=== PATIENT | female | born 1995 | race Caucasian/White ===

== ENCOUNTER 2020-04-28 11:54 | Outpatient (CLI) | payer OTHER | END 2020-04-28 11:55 | disposition home or self-care (01) | LOC: LAB 11:54 | PROVIDERS: ATTEND Obstetrics & Gynecology | DX: O34.29 Maternal care due to uterine scar from other previous surgery (principal); Z3A.00 Weeks of gestation of pregnancy not specified; Z20.828 Contact with and (suspected) exposure to other viral communicable diseases | CPT/HCPCS: 81599 ==

== ENCOUNTER 2020-04-30 11:53 | Outpatient (CLI) | payer OTHER | END 2020-04-30 11:54 | disposition home or self-care (01) | LOC: LAB 11:53 | PROVIDERS: ATTEND Obstetrics & Gynecology | DX: Z01.812 Encounter for preprocedural laboratory examination (principal); O34.219 Maternal care for unspecified type scar from previous cesarean delivery | CPT/HCPCS: 36415; 86850; 86900; 86901 ==

== ENCOUNTER 2020-05-01 05:30 | Inpatient (IN) | payer OTHER ==
[~2020-05-01 05:30] MED LIST: LACTATED RINGERS 1,000 ML IV SCH
[2020-05-01] MEDS ORDERED: ceFAZolin 2 GM in SODIUM CHLORIDE 0.9% 100ML 100 ML IV ONE (07:00)
--- NOTE | 2020-05-01 07:11 | HISTORY & PHYSICAL EXAMINATION ---
Admit History - Visit Reason Visit Reason: Other (planned ) - : 2 Parity: 1 Care: positive: STEVEN-Tesha Risk/History: positive: Previous , Gestational diabetes Complications This : positive: Treated for GBS/UTI, Gestational diabetes Smoking Status: Never smoker - Mother's Labs Mother's Blood Type: positive: O Mother's RH: positive: Positive GBS: positive: Group B Strep Positive Rubella Status: positive: Immune - Other Maternal History Other Maternal History: 1. Prior x 1 2. Gestational diabetes, diet-controlled. Late diagnosis d/t noncompliance with care. 3. Suspected macrosomia, EFW [id number] (99th %ile) 4. GBS bacteriuria, treated 5. E. coli UTI, treated 6. Obesity, BMI 44 7. +CT 1st trimester, third trimester test for reinfection neg 8. Transaminitis 1st trimester, resolved, etiology unknown Meds/Allgy - Home Medications Home Medications: Ambulatory Orders Medication Instructions Recorded Confirmed No122/Iron/Folic Acid 1 each PO 04/18/20 [ Multi Tablet] - Allergies Allergies/Adverse Reactions: Allergies Allergy/AdvReac Type Severity Reaction Status Date / Time No Known Drug Allergies Allergy Verified 04/18/20 14:22 Review of Systems - Constitutional Constitutional: denies: Fatigue - Eyes Eyes: denies: Blurred vision, Spots in vision - Cardiovascular Cariovascular: denies: Palpitations, Chest pain - Respiratory Respiratory: denies: SOB at rest - Gastrointestinal Gastrointestinal: denies: Abdominal pain - Psychiatric Psychiatric: denies: Depression Physical - Abdominal Exam Vital Signs: Temp Pulse Resp BP Pulse Ox 98.2 F 96 18 125/68 100 05/01/20 06:09 05/01/20 05:42 05/01/20 05:42 05/01/20 05:42 05/01/20 05:42 Contraction Frequency (min/apart): irregular Contraction Intensity: positive: Mild Uterine Resting Tone: positive: Soft - Monitoring Heart Rate Baseline: 155 Strip Review: positive: Category I - Presentation Presentation: positive: Vertex (by Jerry EFW 10.75#) - Vaginal Exam Membranes: positive: Membranes intact - Speculum Exam Speculum Exam Performed: positive: No Plan for Labor - Plan For Labor Plan for Labor: 24 yo here at 39+0 wga for planned RLTCD. BMI 44. c/b A1GDM, suspected macrosomia. CBS 107 this AM, however pt continues to report good control at home for the past week. Transaminitis in the 1st trimester, resolved. +CT first trimester, treated and 3rd trimester screen neg. GBS bacteriuria and E. Coli UTI treated at 35 wga. CBC, T&S, CMP this AM prior to surgery (not resulted from preop lab draw). Ancef 3 gm for SSI prophylaxis. SCDs for VTE prophylaxis. Anticipate routine postoperative care, discharge home 48 hours postoperatively.
[2020-05-01] MEDS ORDERED: CITRIC ACID/SODIUM CITRATE 15 ML UDC PO ONE (07:19)
[2020-05-01] MEDS ORDERED: ceFAZolin 3 GM in SODIUM CHLORIDE 0.9% 100ML 100 ML IV ONE (07:19)
--- NOTE | 2020-05-01 07:20 | ANESTHESIA ---
Pre-Anesthesia VS, & Labs - Diagnosis previous C/S, gravid uterus - Procedure repeat C/S Vital Signs: Temp Pulse Resp BP Pulse Ox 36.8 C 96 18 125/68 100 05/01/20 06:09 05/01/20 05:42 05/01/20 05:42 05/01/20 05:42 05/01/20 05:42 Height 5 ft 5 in Weight (kg) 120 kg Body Mass Index 44.0 - NPO >8 hours - Is Patient ?: Yes - Lab Results Lab results reviewed: Yes Home Medications and Allergies Home Medications: Ambulatory Orders No122/Iron/Folic Acid [ Multi Tablet] 1 each PO 04/18/20 Active Medications Cefazolin Sodium 2 gm/ Sodium (Chloride) 100 mls @ 200 mls/hr IV ONCE ONE Stop: 05/01/20 07:29 Lactated Ringer's (Lr) 1,000 mls @ 0 mls/hr IV .Q0M WILMER Last Admin: 05/01/20 06:31 Dose: 30 mls/hr Documented by: No122/Iron/Folic Acid [ Multi Tablet] 1 each PO 04/18/20 Allergies/Adverse Reactions: Allergies Allergy/AdvReac Type Severity Reaction Status Date / Time No Known Drug Allergies Allergy Verified 04/18/20 14:22 Anes History & Medical History - Anesthetic History Anesthesia Complications: reports: No previous complications - Medical History Cardiovascular: reports: None Pulmonary: reports: None Gastrointestinal: reports: None Urinary: reports: None Musculoskeletal: reports: None Endocrine/Autoimmune: reports: Other Skin: reports: None Smoking Status: Never smoker Other Past Medical History: morbid obesity - Surgical History Gynecologic: section - Obstetrical History : 2 Parity: 1 Events: positive: Previous , Gestational diabetes Complications: positive: Treated for GBS/UTI, Gestational diabetes Exam General: Alert, Oriented x3, Cooperative Dental: WNL Mouth Opening: Greater than 4 Fingerbreadths Neck Mobility: Normal Mallampati classification: II Thyromental Distance: 4-6 cm Respiratory: Lungs clear Cardiovascular: Regular rate Plan Anesthesia Type: Spinal Consent for Procedure(s) Verified and Reviewed: Yes Code Status: Attempt Resuscitation ASA classification: 3-Severe systemic disease Is this case an emergency?: No
[2020-05-01 07:28] LABS: ALBUMIN 2.9 g/dL (3.2-5.5); ALBUMIN/GLOBULIN RATIO 0.8 (1.0-2.2); BILIRUBIN,TOTAL 0.2 mg/dL (0.2-1.0); CALCIUM 8.6 mg/dL (8.5-10.3); CREATININE 0.4 mg/dL (0.4-1.0); TOTAL PROTEIN 6.6 g/dL (6.7-8.2)
[2020-05-01 07:29] LABS: BASOPHILS % (AUTO) 0.3 %; EOSINOPHILS # (AUTO) 0.3 10^3/uL (0.0-0.7); EOSINOPHILS % (AUTO) 3.2 %; HGB - HEMOGLOBIN 10.3 g/dL (12.0-16.0); LYMPHOCYTES # (AUTO) 1.6 10^3/uL (1.5-3.5); LYMPHOCYTES % (AUTO) 17.1 %; MEAN CORPUSCULAR HEMOGLOBIN 24.8 pg (27.0-31.0); MEAN CORPUSCULAR HGB CONC 31.4 g/dL (32.0-36.0); MONOCYTES # (AUTO) 0.5 10^3/uL (0.0-1.0); MONOCYTES % (AUTO) 5.2 %; NEUTROPHILS # (AUTO) 6.8 10^3/uL (1.5-6.6); NEUTROPHILS % (AUTO) 73.3 %; PLT - PLATELET COUNT 211 10^3/uL (130-450); RED BLOOD COUNT 4.15 10^6/uL (4.20-5.40); RED CELL DISTRIBUTION WIDTH 16.6 % (12.0-15.0); WHITE BLOOD COUNT 9.3 x10^3/uL (4.8-10.8)
[2020-05-01] MEDS ORDERED: METHYLERGONOVINE 0.2 MG/ML VIAL ONE (07:42)
[2020-05-01] MEDS ORDERED: CARBOPROST TROMETHAMINE 250 MCG/ML AMP IM ONE (07:42)
[2020-05-01] MEDS ORDERED: CITRIC ACID/SODIUM CITRATE 15 ML UDC PO SCH (07:45)
[2020-05-01] MEDS ORDERED: LACTATED RINGERS 1,000 ML IV ONE ×2 (08:13→09:04)
[2020-05-01] MEDS ORDERED: SODIUM CHLORIDE FLUSH 0.9% 10 ML SYRINGE IVP PRN (09:18)
[2020-05-01] MEDS ORDERED: diphenhydrAMINE 25 MG CAPSULE PO PRN (09:18)
[2020-05-01] MEDS ORDERED: ONDANSETRON 4 MG/2 ML VIAL IVP PRN (09:18)
[2020-05-01] MEDS ORDERED: OXYTOCIN/SODIUM CHLORIDE 500 ML IV PRN (09:18)
--- NOTE | 2020-05-01 09:24 | OPERATIVE REPORT ---
Operative Report - General Admit Date: 05/01/20 Planned Procedure: repeat low transverse delivery Pre-Op Diagnosis: uterus at 39+0 wga, prior uterine scar Procedure Performed: repeat low transverse delivery Post Op Diagnosis: same as above - Procedure Note Primary Surgeon: Brice Funes Secondary Surgeon: Solo Canseco Anesthesia Provider: Sandra Dhaliwal Anesthesia Technique: Spinal Pathology: none IV Fluids (mL): 1,500 Estimated Blood Loss (mL): 800 Urine Output (mL): 500 Indications: prior uterine incision, desires RLTCD Findings: Viable female infant, 9 and 9. No significant adhesive disease. Left fallopian tube and ovary visualized and normal; right fallopian adnexa not seen (uterus repaired in situ). Double layer uterine closure. No complications appreciated. Complications: none - Other Other Information/Narrative: After informed consent was assured, patient was taken to the OR with IV fluids running. Spinal anesthesia was obtained. A morin catheter was placed draining clear yellow urine. The patient was prepped and draped in a sterile fashion. A surgical timeout was performed. Anesthesia was tested and found to be adequate. An incision was made sharply through the existing pfannenstiel scar and carried down to the fascia with cautery. The fascia wass scored on each side. Fascial incision was extended laterally with scissors on each side. The fascia was then dissected off the rectus muscles both caudad and cephalad. The rectus muscles were in the midline and the peritoneum was identified and entered sharply. The peritoneal incision was bluntly extended with good exposure of the lower uterine segment. A bladder flap was created sharply. A transverse incision was made in the lower uterine segment, with amniotomy and return of clear fluid. The incision was extended bluntly with cephalad-caudad traction. The infant's head was grasped and delivered through the incision, body followed controlled. Good tone and strong cry on the field; cord was clamped x 2 and cut, infant passed off the field. The placenta was delivered intact with gentle cord traction; an attempt was made to obtain cord blood on the back table which was unsuccessful. The uterus was unable to be exteriorized due to size but had good fundal tone. The cavity was swept with no retained tissue noted. The hysterotomy was reapproximated with a running locked suture of 0 chromic. A second suture of 1 vicryl was placed in an embricating layer in a horizontal fashion. A final running suture of 2-0 vicryl was placed in the serosa to secure some oozing. Good hemostasis was noted. Good fundal tone throughout repair. The fascia was reapproximated with a running suture of 0 PDS. The subcutaneous space was reapproximated with interrupted sutures of 2-0 vicryl to reduce tension on the skin closure. The skin was closed with a subcuticular suture of 4-0 monocryl. Steristrips were placed over the incision and it was covered with a Prevena wound vacuum. A final crede expressed small clot and revealed excellent uterine tone. Sponge and instrument counts were correct. No complications appreciated. The patient was stable and was taken to Labor and Delivery to recover.
[2020-05-01] MEDS ORDERED: LACTATED RINGERS 1,000 ML IV SCH (10:00)
[2020-05-01] MEDS: ACETAMINOPHEN 500 MG TABLET PO SCH ×2 (10:22→18:06)
[2020-05-01] MEDS: IBUPROFEN 800 MG TABLET PO SCH ×2 (10:22→18:07)
[2020-05-01] MEDS: SIMETHICONE CHEW 80 MG TABLET PO SCH ×3 (13:14→23:45)
[2020-05-01] MEDS: oxyCODONE 5 MG TABLET PO PRN ×3 (13:40→23:45)
[2020-05-01] MEDS ORDERED: MORPHINE PF 5 MG/10 ML AMP EP ONE (15:06)
[2020-05-01] MEDS ORDERED: OXYTOCIN 10 UNIT/ML VIAL IV ONE (15:06)
[2020-05-01] MEDS ORDERED: fentaNYL 100 MCG/2 ML VIAL IVP ONE (15:06)
[2020-05-01] MEDS ORDERED: NEOSTIGMINE 1 MG/1 ML 10 ML MDV IVP ONE (15:06)
[2020-05-01] MEDS ORDERED: SODIUM CHLORIDE FLUSH 0.9% 10 ML SYRINGE IVP SCH (17:00)
[2020-05-01] MEDS: DOCUSATE SODIUM 100 MG CAPSULE PO SCH (23:45)
[2020-05-02] MEDS: ACETAMINOPHEN 500 MG TABLET PO SCH ×3 (02:24→18:27)
[2020-05-02] MEDS: IBUPROFEN 800 MG TABLET PO SCH ×3 (02:24→18:28)
[2020-05-02 06:21] LABS: BASOPHILS % (AUTO) 0.3 %; EOSINOPHILS # (AUTO) 0.4 10^3/uL (0.0-0.7); EOSINOPHILS % (AUTO) 4.2 %; HGB - HEMOGLOBIN 9.9 g/dL (12.0-16.0); LYMPHOCYTES # (AUTO) 1.5 10^3/uL (1.5-3.5); LYMPHOCYTES % (AUTO) 16.6 %; MEAN CORPUSCULAR HEMOGLOBIN 24.6 pg (27.0-31.0); MEAN CORPUSCULAR HGB CONC 30.7 g/dL (32.0-36.0); MEAN CORPUSCULAR VOLUME 80.1 fL (81.0-99.0); MEAN PLATELET VOLUME 11.1 fL (7.9-10.8); MONOCYTES # (AUTO) 0.4 10^3/uL (0.0-1.0); MONOCYTES % (AUTO) 4.1 %; NEUTROPHILS # (AUTO) 6.7 10^3/uL (1.5-6.6); NEUTROPHILS % (AUTO) 74.2 %; PLT - PLATELET COUNT 205 10^3/uL (130-450); RED BLOOD COUNT 4.02 10^6/uL (4.20-5.40); RED CELL DISTRIBUTION WIDTH 16.7 % (12.0-15.0)
--- NOTE | 2020-05-02 07:04 | PROVIDER PROGRESS NOTE ---
Subjective - Prog Note Date Prog Note Date: 05/02/20 Prog Note Time: 07:05 - Subjective Pt reports feeling: Improved Subjective: Doing very well. Pain well controlled with motrin, tylenol, and infrequent roxicodone. Ambulating without difficulty. Lochia is light. Singh just removed this AM, awaiting due to void. Passing flatus. Tolerating regular diet without n/v. Not by choice. Mood is good, bonding well with infant. Objective - Vital Signs/Intake & Output Vital Signs: Vital Signs x48h Temp Pulse Resp BP Pulse Ox 05/02/20 05:12 16 99 05/02/20 04:45 98.2 F 82 16 105/64 99 05/02/20 03:00 15 98 05/02/20 02:30 16 99 05/02/20 01:30 18 99 05/02/20 00:30 15 98 05/01/20 23:44 98.1 F 82 16 106/50 L 97 05/01/20 23:05 16 98 Intake & Output: Intake & Output 04/29/20 04/30/20 05/01/20 05/02/20 23:59 23:59 23:59 23:59 Intake Total 1044 Output Total 495 475 Balance 549 -475 - Objective General Appearance: positive: No acute distress Abdomen: positive: Non-tender, No distention (soft, nondistended. Prevena wound vac in place over pfannenstiel with good suction) Skin: positive: Color nml Extremities: positive: Non-tender Neurologic/Psychiatric: positive: Oriented x3 - Lab Results Fish Bones: 05/02/20 05:32 05/01/20 06:00 Other Labs: Lab Results x24hrs 05/02/20 05/01/20 05/01/20 Range/Units 05:32 07:24 06:00 WBC 9.0 9.3 (4.8-10.8) x10^3/uL RBC 4.02 L 4.15 L (4.20-5.40) 10^6/uL Hgb 9.9 L 10.3 L (12.0-16.0) g/dL Hct 32.2 L 32.8 L (37.0-47.0) % MCV 80.1 L 79.0 L (81.0-99.0) fL MCH 24.6 L 24.8 L (27.0-31.0) pg MCHC 30.7 L 31.4 L (32.0-36.0) g/dL RDW 16.7 H 16.6 H (12.0-15.0) % Plt Count 205 211 (130-450) 10^3/uL MPV 11.1 H 11.0 H (7.9-10.8) fL Neut # (Auto) 6.7 H 6.8 H (1.5-6.6) 10^3/uL Lymph # (Auto) 1.5 1.6 (1.5-3.5) 10^3/uL [place] # (Auto) 0.4 0.5 (0.0-1.0) 10^3/uL Eos # (Auto) 0.4 0.3 (0.0-0.7) 10^3/uL Baso # (Auto) 0.0 0.0 (0.0-0.1) 10^3/uL Absolute Nucleated RBC 0.00 0.02 x10^3/uL Nucleated RBC % 0.0 0.2 /100WBC Sodium 136 (135-145) mmol/L Potassium 3.6 (3.5-5.0) mmol/L Chloride 105 (101-111) mmol/L Carbon Dioxide 22 (21-32) mmol/L Anion Gap 9.0 (6-13) BUN 11 (6-20) mg/dL Creatinine 0.4 (0.4-1.0) mg/dL Estimated GFR (MDRD) 198 (>89) Glucose 113 H (70-100) mg/dL Calcium 8.6 (8.5-10.3) mg/dL Total Bilirubin 0.2 (0.2-1.0) mg/dL AST 16 (10-42) IU/L ALT 12 (10-60) IU/L Alkaline Phosphatase 147 H (42-121) IU/L Total Protein 6.6 L (6.7-8.2) g/dL Albumin 2.9 L (3.2-5.5) g/dL Globulin 3.7 (2.1-4.2) g/dL Albumin/Globulin Ratio 0.8 L (1.0-2.2) Assessment/Plan - Problem List (1) state Impression: 24 yo POD#1 s/p RLTCD. Rh pos, rubella immune. VS wnl, exam benign. UOP 0.52 ml/kg/h overnight. Hct this AM 32, no drop from preop. Not by choice. Undecided on contraception. -Await due to void -Increase ambulation -Counseled on contraception this AM, pt considering O/Evra Patch versus IUD; discussed risks benefits/side effects of each. Recommend 6 weeks abstinence and initiation of contraception at visit. Pt and expressed understanding. -Dispo. Home tomorrow, if pt and infant continuing to do well.
[2020-05-02] MEDS: SIMETHICONE CHEW 80 MG TABLET PO SCH ×2 (10:40→23:29)
[2020-05-02] MEDS: DOCUSATE SODIUM 100 MG CAPSULE PO SCH ×2 (10:40→23:28)
[2020-05-02] MEDS: oxyCODONE 5 MG TABLET PO PRN ×2 (18:28→23:28)
[2020-05-03] MEDS: ACETAMINOPHEN 500 MG TABLET PO SCH ×2 (02:19→11:03)
[2020-05-03] MEDS: IBUPROFEN 800 MG TABLET PO SCH ×2 (02:20→11:03)
[2020-05-03] MEDS: oxyCODONE 5 MG TABLET PO PRN ×2 (04:44→08:54)
--- NOTE | 2020-05-03 07:51 | PROVIDER PROGRESS NOTE ---
Subjective - Prog Note Date Prog Note Date: 05/03/20 Prog Note Time: 07:10 - Subjective Pt reports feeling: Improved Subjective: Pt reports she is doing very well. Pain well controlled, infrequent roxicodone use. Lochia is light. Ambulating without difficulty. Voiding spontaneously. Normal flatus. No n/v. Not , formula feeding by choice, no breast pain. No mood concerns. Eager for discharge. Objective - Vital Signs/Intake & Output Vital Signs: Vital Signs x48h Temp Pulse Resp BP Pulse Ox 05/03/20 04:43 98.1 F 92 16 121/68 99 Intake & Output: Intake & Output 04/30/20 05/01/20 05/02/20 05/03/20 23:59 23:59 23:59 23:59 Intake Total 1044 1500 Output Total 495 1825 Balance 549 -325 - Objective General Appearance: positive: No acute distress Abdomen: positive: Non-tender, No distention (Prevena wound vac system in place with good suction over incision. Abdomen soft, nondistended.) - Lab Results Fish Bones: 05/02/20 05:32 05/01/20 06:00 Assessment/Plan - Problem List (1) state Impression: 24 yo POD#2 s/p RLTCD. VS wnl, exam benign. Recovering appropriately. Dispo: home today. Rvwd return precautions, normal recovery.
--- NOTE | 2020-05-03 07:55 | DISCHARGE SUMMARY ---
"Discharge Summary Admit Date: 05/01/20 Discharge Date: 05/03/20 Discharging Provider: Brice Funes Code Status: Attempt Resuscitation Condition at Discharge: Good Discharge Disposition: 01 Home, Self Care - DIAGNOSES Admission Diagnoses: uterus at 39+0 wga, A1GDM, prior uterine scar Discharge Diagnoses with Status of Each Condition: same as above, delivered - HPI History of Present Illness: 24 yo woman admitted at 39+0 wga for planned repeat low transverse delivery. - CONSULTS | PROCEDURES Consultations: ANesthesia Procedures: RLTCD - HOSPITAL COURSE Hospital Course: Ms. Mo underwent an uncomplicated repeat low transverse delivery with delivery of a viable female infant. She remained afebrile throughout her stay. Her morin catheter was removed on postoperative day number 1. At the time of discharge, she was ambulating, voiding spontaneously, tolerating regular diet and her pain was well controlled with oral medications. - ALLERGIES Allergies/Adverse Reactions: Allergies Allergy/AdvReac Type Severity Reaction Status Date / Time No Known Drug Allergies Allergy Verified 04/18/20 14:22 - MEDICATIONS Home Medications: Ambulatory Orders Medication Instructions Recorded Confirmed No122/Iron/Folic Acid 1 each PO 04/18/20 [ Multi Tablet] Home Medications Other | Comments: 1. Ibuprofen 800 mg take 1 tab by mouth every 8 hours 2. [id number] mg take 3 tabs by mouth every 6 hours 3. Roxicodone 5 mg take 1 tab by mouth every 6 hours as needed for pain not relieved by other medications 4. Miralax take 1 capful in 4-8 oz of juice or water daily - PHYSICAL EXAM AT DISCHARGE General Appearance: positive: No acute distress (see progress note for full exam) - LABS Result Diagrams: 05/02/20 05:32 05/01/20 06:00 - FOLLOW UP Follow Up: Follow up as scheduled with Dr. Funes at [facility] on at 1340 After going home, expect to have some soreness and pain as you recover. Plan to stay at home and have someone nearby to help out. As you begin to recover gradually increase your activity. For 2 weeks following surgery, do not drive. You should never drive while taking narcotic pain medications. For 4 weeks following surgery, please do not work out or lift anything heavier than a gallon of milk. For six weeks following the please do not have intercourse or put anything in the vagina. Your dressing will be removed at your postoperative appointment. If it loses suction and falls off before that appointment, that is okay, but please do not remove the small bandaids (steristrips) underneath it. Use ibuprofen as prescribed to help keep your pain at a tolerable level. If that is not providing adequate pain relief, take [place] or Percocet as prescribed. Use the stool softeners daily or twice a day as needed to achieve regular soft bowel movement s. Once you have been regular for several days, you can back off of the stool softener. If you find yourself more emotional or irritable than usual, that can be normal. You have just been through something very physically grueling accompanied by a big hormonal change, and now you are sleeping less taking care of your baby. But if you find that you are constantly down, unable to get out of bed, or having difficulty bonding with your baby, dont hesitate to call us and ask for help. If you are starting the progesterone only pill (mini-pill) you may start immediately. If you are starting combined oral contraceptives with estrogen, you may start 6 weeks after the . When to call the clinic [phone], or come to the Emergency Department : If at any time you develop severe headache, changes in your vision, severe upper abdominal pain, fever and chills, or bleeding from the vagina soaking through a pad in less than an hour. - TIME SPENT Time Spent in Discharge (Minutes): 30"
[2020-05-03 08:31] VITALS: BP 124/76
[2020-05-03] MEDS: SIMETHICONE CHEW 80 MG TABLET PO SCH (08:53)
[2020-05-03] MEDS: DOCUSATE SODIUM 100 MG CAPSULE PO SCH (08:53)
== END 2020-05-03 11:30 | disposition home or self-care (01) | DRG 788 ==
LOC: FBP 05:30 → UNDOADMIN 06:04
PROVIDERS: ADMIT Obstetrics & Gynecology; ATTEND Obstetrics & Gynecology
PROC: 10D00Z1 Extraction of Products of Conception, Low, Open Approach (ICD-10-PCS; principal; 2020-05-01 07:30)
DX: O24.420 Gestational diabetes mellitus in childbirth, diet controlled (principal); O34.211 Maternal care for low transverse scar from previous cesarean delivery; O99.824 Streptococcus B carrier state complicating childbirth; O99.214 Obesity complicating childbirth; E66.01 Morbid (severe) obesity due to excess calories; Z3A.39 39 weeks gestation of pregnancy; Z37.0 Single live birth
CPT/HCPCS: 36415; 80053; 85025

== ENCOUNTER 2020-09-03 11:57 | Emergency (ER) | payer OTHER ==
[2020-09-03 12:47] LABS: BILIRUBIN,URINE NEGATIVE (NEGATIVE); GLUCOSE, URINE (UA) NEGATIVE (NEGATIVE); KETONES,URINE (UA) NEGATIVE (NEGATIVE); LEUKOCYTE ESTERASE, URINE NEGATIVE (NEGATIVE); NITRITE,URINE POSITIVE (NEGATIVE); OCCULT BLOOD,URINE LARGE (NEGATIVE); PROTEIN,URINE 30 mg/dL (NEGATIVE); UROBILINOGEN,URINE 0.2 (NORMAL) E.U./dL (NORMAL)
[2020-09-03 12:48] LABS: CLARITY,URINE SL. CLOUDY (CLEAR); HCG UR QUAL NEGATIVE
--- NOTE | 2020-09-03 12:53 | ED Physician Documentation ---
History of Present Illness - Stated complaint Stated Complaint: FEMALE - Chief complaint Chief Complaint: Abd Pain - History obtained from History obtained from: Patient - Additonal information Additional information: Patient comes emergency department complaining of onset of vaginal bleeding 2 weeks after starting her normal period. Patient states that she had a baby in later April and that she is not breast-feeding. She states she missed her period in July and that prior to the of this month, when she started her normal menses, her last period had been at the beginning of June. Patient states that this month, her menstruation only lasted about 3 to 4 days, then stopped. However, 2 days ago, patient began having vaginal bleeding that was about like what she would normally have on the heaviest day of her period. She states that the bleeding has continued and that she is using a pad or tampon about every 2-3 hours. Patient states that she has not passed any tissue. She took a test in July which was negative. Patient denies any pain. No fevers. No dysuria. No other complaints at this time. She states she is not on any contraceptives currently. Review of Systems Ten Systems: 10 systems reviewed and negative Constitutional: reports: Reviewed and negative Eyes: reports: Reviewed and negative Ears: reports: Reviewed and negative Nose: reports: Reviewed and negative Throat: reports: Reviewed and negative Cardiac: reports: Reviewed and negative Respiratory: reports: Reviewed and negative GI: reports: Nausea. denies: Vomiting : reports: Vaginal bleeding Skin: reports: Reviewed and negative Musculoskeletal: reports: Reviewed and negative Neurologic: reports: Reviewed and negative Psychiatric: reports: Reviewed and negative Endocrine: reports: Reviewed and negative Immunocompromised: reports: Reviewed and negative PD PAST MEDICAL HISTORY - Past Medical History Past Medical History: Yes Cardiovascular: None Respiratory: None Neuro: None Endocrine/Autoimmune: Other GI: None PNEUMATIC TESTER: None : None HEENT: None Psych: None Musculoskeletal: None Derm: None - Past Surgical History Past Surgical History: Yes /PNEUMATIC TESTER: section - Present Medications Home Medications: Ambulatory Orders Medication Instructions Recorded Confirmed No122/Iron/Folic Acid 1 each PO 04/18/20 [ Multi Tablet] Acetaminophen/Cod 300/30 [Tylenol 1 - 2 each PO Q4-6H PRN 3 Days #12 09/03/20 #3] tablet Ibuprofen 800 mg PO Q8H PRN #15 tablet 09/03/20 Ondansetron Odt [Zofran] 4 mg TL Q6H PRN #10 tablet 09/03/20 Sulfamethox/Trimeth 800/160 1 each PO BID #14 tablet 09/03/20 [Bactrim Ds 800/160] - Allergies Allergies/Adverse Reactions: Allergies Allergy/AdvReac Type Severity Reaction Status Date / Time No Known Drug Allergies Allergy Verified 09/03/20 12:15 - Social History Does the pt smoke?: No Smoking Status: Never smoker Does the pt drink ETOH?: No Does the pt have substance abuse?: No - Immunizations Immunizations are current?: Yes - POLST Patient has POLST: No PD ED PE NORMAL - Vitals Vital signs reviewed: Yes - General General: Alert and oriented X 3, No acute distress - HEENT HEENT: Atraumatic, PERRL, EOMI, Moist mucous membranes - Neck Neck: Supple, no meningeal sign - Cardiac Cardiac: RRR, No murmur - Respiratory Respiratory: Clear bilaterally - Abdomen Abdomen: Soft, Non distended, Other (Mild suprapubic tenderness. No rebound or guarding) - Derm Derm: Warm and dry - Extremities Extremities: No deformity - Neuro Neuro: Alert and oriented X 3 - Psych Psych: Normal mood, Normal affect Results - Vitals Vitals: Vital Signs - 24 hr 09/03/20 09/03/20 09/03/20 12:15 12:31 13:39 Temperature 36.6 C 37.1 C 36.9 C Heart Rate 86 92 77 Respiratory 16 18 18 Rate Blood Pressure 127/90 H 125/82 H 114/69 O2 Saturation 99 100 100 09/03/20 14:03 Temperature 36.9 C Heart Rate Respiratory Rate Blood Pressure O2 Saturation Oxygen O2 Source Room air - Labs Labs: Laboratory Tests 09/03/20 12:25 Urine Color YELLOW Urine Clarity SL. CLOUDY Urine pH 6.0 Ur Specific [place] >=1.030 H Urine Protein 30 H Urine Glucose (UA) NEGATIVE Urine Ketones NEGATIVE Urine Occult Blood LARGE H Urine Nitrite POSITIVE H Urine Bilirubin NEGATIVE Urine Urobilinogen 0.2 (NORMAL) Ur Leukocyte Esterase NEGATIVE Urine RBC TNTC H Urine WBC 6-10 H Ur Squamous Epith Cells MOD Squamous H Urine Bacteria Many H Urine Mucus Few Strands Ur Microscopic Review INDICATED Urine Culture Comments NOT INDICATED Urine HCG, Qual NEGATIVE PD MEDICAL DECISION MAKING - ED course Complexity details: reviewed results, re-evaluated patient, considered differential, d/w patient ED course: I discussed with the patient that while her periods have been irregular, she is not having a concerning volume of bleeding at this time, with using a pad every few hours. Additionally, I have checked a test here and is negative. I discussed with the patient that while this is a where the subject to bring up with her ASSISTANT PROFESSOR OF CHEMISTRY, she does not meet criteria for further work-up emergently. In the emergency department. I discussed with her that it is not uncommon to have irregular bleeding sometimes for most women, and that usually these sorts of things blow over on their own and are related to various underlying imbalances of hormones. Especially given that the patient has given in the last 5 months, I have discussed with her that her body may simply be getting back into normal hormonal cycle. However, if she continues to have frequent periods interspersed with amenorrhea, she should follow-up with her ASSISTANT PROFESSOR OF CHEMISTRY to discuss whether she needs to have hormone levels or ultrasound checked. We have discussed the usual indications for return. Departure - Departure Disposition: 01 Home, Self Care Clinical Impression: Dysfunctional uterine bleeding Urinary tract infection Qualifiers: Urinary tract infection type: acute cystitis Hematuria presence: with hematuria Qualified Code(s): N30.01 - Acute cystitis with hematuria Headache Qualifiers: Headache type: unspecified Headache chronicity pattern: acute headache Intractability: not intractable Qualified Code(s): R51.9 - Headache, unspecified Condition: Stable Instructions: ED Bleed Irregular Vaginal, ED Headache Tension, ED UTI Cystitis Female Prescriptions: Sulfamethox/Trimeth 800/160 [Bactrim Ds 800/160] 1 each PO BID #14 tablet Ibuprofen 800 mg PO Q8H PRN #15 tablet PRN Reason: Pain Acetaminophen/Cod 300/30 [Tylenol #3] 1 - 2 each PO Q4-6H PRN 3 Days #12 tablet PRN Reason: Pain Ondansetron Odt [Zofran] 4 mg TL Q6H PRN #10 tablet PRN Reason: Nausea / Vomiting Comments: Your test is negative. Your urinalysis is positive for infection, and we have started you on antibiotics for this. Most likely, the bleeding you are having is due to a hormone imbalance, which is not really uncommon among women. Generally, especially when irregular periods occur in the months following a , the body will get the hormones balanced on its own and periods will return to a regular schedule. However, if you continue to have very frequent periods, or if your periods remain highly unpredictable and irregular for more than the next couple of months, then you should follow-up with your OB handkerchief cutter to see if you need hormone testing or ultrasound to be done. Please take the antibiotics every day as directed until gone for the urinary tract infection. Discharge Date/Time: 09/03/20 14:08
[2020-09-03 13:05] LABS: BACTERIA,URINE Many /HPF (None Seen); MUCUS,URINE Few Strands; RBC,URINE TNTC /HPF (0-5); SQUAMOUS EPITHELIAL CELL,UR MOD Squamous (<= Few)
[2020-09-03] MEDS ORDERED: KETOROLAC 60 MG/2 ML VIAL IM STA (13:23)
[2020-09-03] MEDS ORDERED: ACETAMINOPHEN/CODEINE 300 MG/30 MG TABLET PO STA (13:23)
[2020-09-03 13:41] VITALS: BP 114/69
[2020-09-03] MEDS ORDERED: SULFAMETH/TRIMETH DS 800/160 MG TABLET PO STA (13:43)
== END 2020-09-03 14:08 | disposition home or self-care (01) ==
LOC: ED 11:57
DX: N93.8 Other specified abnormal uterine and vaginal bleeding (principal); N30.01 Acute cystitis with hematuria; R51.9 Headache, unspecified
CPT/HCPCS: 81001; 81025; 96372; 99283; 99284; A9270; 81003; 87086

== ENCOUNTER 2022-03-08 03:12 | Emergency (ER) | payer OTHER ==
[2022-03-08 03:42] LABS: BILIRUBIN,URINE NEGATIVE (NEGATIVE); CLARITY,URINE CLEAR (CLEAR); GLUCOSE, URINE (UA) NEGATIVE (NEGATIVE); HCG UR QUAL POSITIVE; KETONES,URINE (UA) 15 mg/dL (NEGATIVE); LEUKOCYTE ESTERASE, URINE NEGATIVE (NEGATIVE); NITRITE,URINE POSITIVE (NEGATIVE); OCCULT BLOOD,URINE MODERATE (NEGATIVE); PROTEIN,URINE NEGATIVE (NEGATIVE); UROBILINOGEN,URINE 0.2 (NORMAL) E.U./dL (NORMAL)
[2022-03-08 03:51] LABS: BACTERIA,URINE Moderate /HPF (None Seen); SQUAMOUS EPITHELIAL CELL,UR FEW Squamous (<= Few); WBC,URINE 0-3 /HPF (0-5)
--- NOTE | 2022-03-08 04:02 | ED Physician Documentation ---
PD HPI FEMALE - Stated complaint Stated Complaint: LOWER BACK/ABD PX - Chief complaint Chief Complaint: Abd Pain - History obtained from History obtained from: Patient - Additional information Additional information: Patient is a 26-year-old female, G3, P2 presenting for evaluation of lower abdominal pain and back pain that has been present for 2 days. It is sharp at times. She last had a period in January and at this past weekend took a home test which was positive. She has not had an ultrasound yet for this . She denies complications with previous pregnancies. She also reports having nausea and vomiting as well as feeling some dysuria in the last 2 days.She at times has had epigastric pain. She denies fever, chest pain, difficulty breathing. She denies vaginal bleeding or discharge. Review of Systems Constitutional: denies: Fever Nose: denies: Congestion Cardiac: denies: Chest pain / pressure Respiratory: denies: Dyspnea GI: reports: Abdominal Pain, Nausea, Vomiting. denies: Diarrhea : reports: Dysuria Skin: denies: Rash Musculoskeletal: reports: Back pain. 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 - Present Medications Home Medications: Ambulatory Orders Medication Instructions Recorded Confirmed No Known Home Medications 03/08/22 03/08/22 - Allergies Allergies/Adverse Reactions: Allergies Allergy/AdvReac Type Severity Reaction Status Date / Time No Known Drug Allergies Allergy Verified 03/08/22 03:25 - Social History Does the pt smoke?: No Smoking Status: Never smoker Does the pt drink ETOH?: No Does the pt have substance abuse?: No - Immunizations Immunizations are current?: Yes - POLST Patient has POLST: No PD ED PE NORMAL - General General: Alert and oriented X 3, No acute distress, Well developed/nourished - HEENT HEENT: Atraumatic, Moist mucous membranes - Neck Neck: Supple, no meningeal sign - Cardiac Cardiac: RRR, No murmur, Strong equal pulses - Respiratory Respiratory: No respiratory distress, Clear bilaterally - Abdomen Abdomen: Normal bowel sounds, Soft, Non distended, Other (Right lower quadrant tenderness, epigastric tenderness, right CVA tenderness; No guarding, rebound or peritoneal signs) - Back Back: No: No CVA TTP (Right CVA tenderness) - Derm Derm: Normal color, No rash - Extremities Extremities: No edema - Neuro Neuro: Normal speech - Psych Psych: Normal mood, Normal affect Results - Vitals Vitals: Vital Signs - 24 hr 03/08/22 03/08/22 03:15 04:15 Temperature 37.2 C 36.0 C L Heart Rate 103 H 101 H Respiratory 18 18 Rate Blood Pressure 105/75 115/71 O2 Saturation 99 98 Oxygen O2 Source Room air - Labs Labs: Laboratory Tests 03/08/22 03/08/22 03/08/22 03:35 03:35 04:07 WBC RBC Hgb Hct MCV MCH MCHC RDW Plt Count MPV Neut # (Auto) Lymph # (Auto) [place] # (Auto) Eos # (Auto) Baso # (Auto) Absolute Nucleated RBC Nucleated RBC % Sodium Potassium Chloride Carbon Dioxide Anion Gap BUN Creatinine Estimated GFR (MDRD) Glucose Calcium Total Bilirubin AST ALT Alkaline Phosphatase Total Protein Albumin Globulin Albumin/Globulin Ratio Lipase HCG, Quant Urine Color YELLOW Urine Clarity CLEAR Urine pH 6.0 Ur Specific [place] >=1.030 H Urine Protein NEGATIVE Urine Glucose (UA) NEGATIVE Urine Ketones 15 H Urine Occult Blood MODERATE H Urine Nitrite POSITIVE H Urine Bilirubin NEGATIVE Urine Urobilinogen 0.2 (NORMAL) Ur Leukocyte Esterase NEGATIVE Urine RBC 6-10 H Urine WBC 0-3 Ur Squamous Epith Cells FEW Squamous Urine Bacteria Moderate H Ur Microscopic Review INDICATED Urine Culture Comments INDICATED Urine HCG, Qual POSITIVE Blood Type O POSITIVE 03/08/22 03/08/22 03/08/22 04:07 04:07 04:07 WBC 7.9 RBC 4.74 Hgb 13.0 Hct 39.8 MCV 84.0 MCH 27.4 MCHC 32.7 RDW 13.6 Plt Count 231 MPV 10.4 Neut # (Auto) 5.9 Lymph # (Auto) 1.0 L [place] # (Auto) 0.6 Eos # (Auto) 0.4 Baso # (Auto) 0.0 Absolute Nucleated RBC 0.00 Nucleated RBC % 0.0 Sodium 134 L Potassium 3.6 Chloride 100 L Carbon Dioxide 23 Anion Gap 11.0 BUN 9 Creatinine 0.5 Estimated GFR (MDRD) 150 Glucose 110 H Calcium 9.0 Total Bilirubin 0.6 AST 16 ALT 17 Alkaline Phosphatase 57 Total Protein 7.0 Albumin 4.0 Globulin 3.0 Albumin/Globulin Ratio 1.3 Lipase 25 HCG, Quant 97198.00 Urine Color Urine Clarity Urine pH Ur Specific [place] Urine Protein Urine Glucose (UA) Urine Ketones Urine Occult Blood Urine Nitrite Urine Bilirubin Urine Urobilinogen Ur Leukocyte Esterase Urine RBC Urine WBC Ur Squamous Epith Cells Urine Bacteria Ur Microscopic Review Urine Culture Comments Urine HCG, Qual Blood Type PD MEDICAL DECISION MAKING - ED course ED course: Patient with abdominal pain and recent positive test.Vital signs overall stable. Patient does have mild tenderness on exam but does not have Peritoneal signs. Unfortunately, ultrasound capabilities are not currently available at this facility until The morning. Patient needs an emergent ultrasound to determine the location of her given the presence of abdominal pain And it would not be appropriate to hold her in the emergency department until later this morning when ultrasound is available. I did speak with emergency physician at [facility] who graciously accepts the patient for transfer. Patient's is with her and will transport the patient by private vehicle.They are aware to go directly to [facility]'s emergency department and are aware of the urgency regarding the need for an ultrasound.Labs were obtained prior to patient Leaving so the results would be available for [facility] and we will fax this information to them as soon as they result. 0345 AM - D/w Dr. Bandar Martínez at [facility]. Agrees to accept the patien t. They do have ultrasound capability Tonight. [id number] - Pt's labs (including HCG, UA, Blood type) faxed to [facility]. Departure - Departure Disposition: 02 Transfer Acute Care Hosp Clinical Impression: Abdominal pain in Qualifiers: Trimester: unspecified trimester Qualified Code(s): O26.899 - Other specified related conditions, unspecified trimester Condition: Stable Comments: You were evaluated for abdominal pain. Your test is positive. You need an ultrasound to determine the location of this and make sure that it is inside of your uterus and not something called an ectopic (a outside of the uterus). An ectopic is a medical emergency and could be life-threatening. We do not have ultrasound tonight at [facility] And this test cannot wait until the morning. I have spoken to Dr. Bandar Martínez At [facility] in [place]. They will be expecting you in their emergency department and will be able to obtain an ultrasound. Please do not stop at home or anywhere else and go directly to [facility]'s emergency department. Please do not eat or drink anything.If at anytime you have worsening pain, feel dizzy or faint or feel too Unwell to have your drive you to [facility], call 911 or return to this emergency department. Discharge Date/Time: 03/08/22 04:15
[2022-03-08 04:15] LABS: BASOPHILS % (AUTO) 0.3 %; EOSINOPHILS # (AUTO) 0.4 10^3/uL (0.0-0.7); EOSINOPHILS % (AUTO) 4.8 %; HCT - HEMATOCRIT 39.8 % (37.0-47.0); MEAN CORPUSCULAR HEMOGLOBIN 27.4 pg (27.0-31.0); MEAN CORPUSCULAR HGB CONC 32.7 g/dL (32.0-36.0); MEAN PLATELET VOLUME 10.4 fL (7.9-10.8); MONOCYTES # (AUTO) 0.6 10^3/uL (0.0-1.0); MONOCYTES % (AUTO) 7.5 %; NEUTROPHILS # (AUTO) 5.9 10^3/uL (1.5-6.6); NEUTROPHILS % (AUTO) 75.1 %; PLT - PLATELET COUNT 231 10^3/uL (130-450); RED BLOOD COUNT 4.74 10^6/uL (4.20-5.40); RED CELL DISTRIBUTION WIDTH 13.6 % (12.0-15.0); WHITE BLOOD COUNT 7.9 x10^3/uL (4.8-10.8)
[2022-03-08 04:27] VITALS: BP 115/71
[2022-03-08 04:29] LABS: ALBUMIN/GLOBULIN RATIO 1.3 (1.0-2.2); BILIRUBIN,TOTAL 0.6 mg/dL (0.2-1.0); CREATININE 0.5 mg/dL (0.4-1.0); POTASSIUM 3.6 mmol/L (3.5-5.0)
--- NOTE | 2022-03-10 12:49 | ED Physician Documentation ---
ED Addendum - Addendum Addendum: 03/10/22 12:48 Urine culture has grown E. coli that is pansensitive. Giving setting of prescription for Keflex has been sent to [facility] in [place]. Nursing staff has notified patient via phone.
== END 2022-03-08 04:15 | disposition short-term general hospital (02) ==
LOC: ED 03:12
DX: O26.899 Other specified pregnancy related conditions, unspecified trimester (principal); O21.9 Vomiting of pregnancy, unspecified; O23.10 Infections of bladder in pregnancy, unspecified trimester; B96.20 Unspecified Escherichia coli [E. coli] as the cause of diseases classified elsewhere; Z3A.00 Weeks of gestation of pregnancy not specified
CPT/HCPCS: 36415; 80053; 81001; 81003; 81025; 83690; 84702; 85025; 86900; 86901; 87086; 87181; 99284; 99285